=== PATIENT | female | born 1955 | race Caucasian/White ===

== ENCOUNTER 2017-10-26 09:54 | Emergency (ER) | payer BC ==
[2017-10-26 10:04] VITALS: BP 104/63
--- NOTE | 2017-10-26 10:12 | ED ---
Upper Extremity Pain - HPI Summary HPI Summary: 61-year-old female presents with left thumb injury yesterday. She is gardening and slipped and landed on her left thumb. She denies any wrist pain. She denies any numbness tingling. States her pain is only on her proximal and distal phalanges of left thumb. She denies any previous injuries to the area. She is right-handed. She has been taking Tylenol for pain. She still has range of motion but has swelling at the IP joint. - History of Current Complaint Chief Complaint: UCUpperExtremity Stated Complaint: THUMB INJURY Time Seen by Provider: 10/26/17 10:06 - Allergies/Home Medications Allergies/Adverse Reactions: Allergies Allergy/AdvReac Type Severity Reaction Status Date / Time aspirin Allergy Difficulty Verified 10/26/17 10:00 Breathing ibuprofen Allergy Difficulty Verified 10/26/17 10:00 Breathing PMH/Surg Hx/FS Hx/Imm Hx Endocrine/Hematology History: Denies: Hx Anticoagulant Therapy Cardiovascular History: Denies: Hx Auto Implanted Cardiovert Defib - Cancer History Hx Chemotherapy: No Hx Radiation Therapy: No - Surgical History Surgery Procedure, Year, and Place: Back surgery; Right Knee arthroscopy; achiles tendon rupture - Immunization History Date of Tetanus Vaccine: Unk Date of Influenza Vaccine: Fall 2013 Infectious Disease History: No Infectious Disease History: Denies: Traveled Outside the [place] in Last 30 Days - Family History Known Family History: Positive: Hypertension - Social History Alcohol Use: Occasionally Alcohol Amount: 2 drinks Substance Use Type: Reports: None Smoking Status (MU): Never Smoked Tobacco Review of Systems Negative: Fever Negative: Chest Pain Negative: Shortness Of Breath Positive: Myalgia - left thumb Positive: Bruising - left thumb All Other Systems Reviewed And Are Negative: Yes Physical Exam Triage Information Reviewed: Yes Vital Signs On Initial Exam: Initial Vitals Temp Pulse Resp BP Pulse Ox 98.9 F 67 16 104/63 99 10/26/17 10:01 10/26/17 10:01 10/26/17 10:01 10/26/17 10:01 10/26/17 10:01 Vital Signs Reviewed: Yes Appearance: Positive: Well-Appearing Skin: Positive: Warm, Dry Head/Face: Positive: Normal Head/Face Inspection Eyes: Positive: Normal, Conjunctiva Clear ENT: Positive: Pharynx normal Respiratory/Lung Sounds: Positive: Clear to Auscultation, Breath Sounds Present Cardiovascular: Positive: Normal, RRR Musculoskeletal: Positive: Limited @ - left thumb, Edema Left - thumb, Other - nontender wrist, neg snuff box tenderness, good pulses, capillary refill<2secs, tenderness and edema IP joint left thumb Neurological: Positive: Normal Psychiatric: Positive: Normal Diagnostics - Vital Signs Vital Signs Temp Pulse Resp BP Pulse Ox 10/26/17 10:01 98.9 F 67 16 104/63 99 - Laboratory Lab Statement: Any lab studies that have been ordered have been reviewed, and results considered in the medical decision making process. - Radiology thumb Xray Interpretation: No Acute Changes Radiology Interpretation Completed By: Radiologist Course/Dx - Course Course Of Treatment: 61-year-old female presents with left thumb injury yesterday. She is gardening and slipped and landed on her left thumb. She denies any wrist pain. She denies any numbness tingling. States her pain is only on her proximal and distal phalanges of left thumb. She denies any previous injuries to the area. She is right-handed. She has been taking Tylenol for pain. She still has range of motion but has swelling at the IP joint. On exam has tenderness over the IP joint. Neurovascular intact. X-ray normal. will treat with RICE and thumb spica splint for immbolization. patient understand and agrees with plan. - Diagnoses Differential Diagnosis/HQI/PQRI: Positive: Fracture (Closed), Strain, Sprain Provider Diagnoses: Injury of left thumb Discharge - Sign-Out/Discharge Documenting (check all that apply): Discharge/Admit/Transfer - Discharge Plan Condition: Good Disposition: HOME Patient Education Materials: R.I.C.E. Treatment (ED) Referrals: Rene Marks MD [Primary Care Provider] - Additional Instructions: Take Tylenol every 6 hours as needed for pain Apply ice, rest, elevate Follow up with primary care physician within 5 days if no improvement Return to ED if develop any new or worsening symptoms - Billing Disposition and Condition Condition: GOOD Disposition: HOME
--- NOTE | 2017-10-26 10:30 | RAD ---
INDICATION: Left thumb injury. TECHNIQUE: 3 views of the left thumb were obtained. FINDINGS: There is soft tissue swelling which is most prominent at the metacarpal phalangeal joint. The bones are normal alignment. No fracture is seen. Joint spaces appear maintained. IMPRESSION: SOFT TISSUE SWELLING, NO FRACTURE IS SEEN.
== END 2017-10-26 10:53 | disposition home or self-care (01) ==
LOC: UCEAST 09:54
DX: S69.92XA Unspecified injury of left wrist, hand and finger(s), initial encounter (principal); S60.012A Contusion of left thumb without damage to nail, initial encounter; W01.0XXA Fall on same level from slipping, tripping and stumbling without subsequent striking against object, initial encounter; Y93.H2 Activity, gardening and landscaping; Y92.096 Garden or yard of other non-institutional residence as the place of occurrence of the external cause; Z88.6 Allergy status to analgesic agent
CPT/HCPCS: 99212; G0463

== ENCOUNTER 2023-10-31 06:23 | Observation (INO) ==
[~2023-10-31 06:23] MED LIST: Metoclopramide 5 MG/ML VIAL (10 mg) IV PRN; NS 0.45% 1000 ml BAG 1,000 ML IV SCH; Naloxone 0.4 mg VIAL 0.4 mg/ml 1 ml VIAL IV PRN
[2023-10-31] MEDS ORDERED: ceFAZolin 2 GM in NS PREMIX 2 GM/100 ML BAG IVPB ONE (06:45)
[2023-10-31] MEDS ORDERED: Tranexamic Acid 1 GM/100ML BAG 2,000 MG/200 ML BAG IV ONE (06:45)
[2023-10-31] MEDS ORDERED: ROPIVACAINE 5 MG/ML 30 ML BTL (0.5%) ONE ×3 (06:55→07:42)
[2023-10-31] MEDS: Lactated Ringers 1000 ml BAG 1,000 ML IV SCH ×2 (06:59→13:30)
[2023-10-31 07:18] LABS: Rapid COVID-19 Molecular Undetected (Undetected)
[2023-10-31] MEDS ORDERED: Midazolam 2 mg/2 ml VIAL 1 mg/ml 2 ml VIAL (2 mg) ONE (07:41)
[2023-10-31] MEDS ORDERED: Ondansetron 4 mg VIAL 2 MG/ML 2 ml VIAL ONE ×2 (07:41→12:27)
[2023-10-31] MEDS ORDERED: Lidocaine 2% PF 5 ML VIAL ONE (07:41)
[2023-10-31] MEDS ORDERED: Propofol 10 MG/ML 20 ML BTL ONE (07:41)
[2023-10-31] MEDS ORDERED: fentaNYL 100 mcg/2 ml 50 MCG/ML VIAL ONE ×3 (07:41→11:45)
[2023-10-31] MEDS ORDERED: Dexamethasone IV 4 MG/ML VIAL 1 ml VIAL ONE ×2 (07:41→07:42)
[2023-10-31] MEDS ORDERED: Phenylephrine 40 mcg/mL 10mL (400mcg) SYRINGE ONE (09:03)
[2023-10-31] MEDS ORDERED: HYDROmorphone 0.5 MG/0.5 ML SYRINGE ONE (09:41)
[2023-10-31] MEDS ORDERED: Lactulose 30 ml UDC PO PRN (11:21)
[2023-10-31] MEDS ORDERED: Ondansetron 4 mg VIAL 2 MG/ML 2 ml VIAL IV PRN (11:21)
[2023-10-31] MEDS ORDERED: Ondansetron ODT 4 mg TAB 4 MG TAB PO PRN (11:21)
[2023-10-31] MEDS ORDERED: Magnesium Hydroxide LIQ 30 ML UDC PO PRN (11:21)
[2023-10-31] MEDS ORDERED: Morphine 2 MG/ML SYRINGE IV PRN (11:21)
[2023-10-31] MEDS: fentaNYL 100 mcg/2 ml 50 MCG/ML VIAL IV PRN (11:47)
[2023-10-31] MEDS: Ondansetron 4 mg VIAL 2 MG/ML 2 ml VIAL IV PRN (12:33)
[2023-10-31] MEDS: Buffered Lidocaine 1% SYRIN 1 ml INTRADERM ONE (12:51)
[2023-10-31] MEDS: Scopolamine 1 mg/72hr PATCH TRANSDERM ONE (12:51)
[2023-10-31] MEDS: Acetaminophen IV 1 GM/100ML 1,000 MG/100 ML BAG IV ONE (12:51)
[2023-10-31] MEDS: ceFAZolin 1 GM ADVAN 1 GM in NS 0.9% 50 ML 50 ML IVPB SCH (17:02)
[2023-10-31 17:28] VITALS: BP 102/75
[2023-10-31] MEDS ORDERED: Magnesium Hydroxide LIQ 30 ML UDC PO SCH (21:00)
[2023-11-01] MEDS ORDERED: Vitamin THERAPEUTIC TAB PO SCH (09:00)
== END 2023-10-31 18:25 | disposition home or self-care (01) ==
LOC: SSU 06:23 → OR 06:23
PROVIDERS: ADMIT Orthopaedic Surgery Adult Reconstructive Orthopaedic Surgery; ATTEND Orthopaedic Surgery Adult Reconstructive Orthopaedic Surgery